=== PATIENT | female | born 1995 | race Caucasian/White ===

== ENCOUNTER 2016-11-11 19:41 | Emergency (ER) | payer BC ==
[~2016-11-11] VITALS: Ht 154.9 cm; Wt 73.2 kg
[2016-11-11 19:46] VITALS: TEMP 98.1
[2016-11-11] MEDS ORDERED: IMITREX 5MGNAS NS (20:09)
[2016-11-11] MEDS ORDERED: NUVARING VAG RING VG (20:13)
[2016-11-11] MEDS ORDERED: PHENERGAN 25 TA25 MG PO (21:17)
[2016-11-11 21:31] VITALS: BP 120/68; PULSE 76
== END 2016-11-11 21:32 | disposition home or self-care (01) ==
LOC: COL.ER 19:41
DX: G43.909 Migraine, unspecified, not intractable, without status migrainosus (principal)
CPT/HCPCS: J1200; J1885; J2550

== ENCOUNTER → 2017-01-13 | Outpatient (CLI) | payer BC ==
[~2017-01-13] MED LIST: IMITREX 5MGNAS NS; NUVARING VAG RING VG; PHENERGAN 25 TA25 MG PO
== END ==
LOC: COL.RAD 07:30
DX: C71.9 Malignant neoplasm of brain, unspecified (principal); G93.89 Other specified disorders of brain; G04.90 Encephalitis and encephalomyelitis, unspecified; G43.009 Migraine without aura, not intractable, without status migrainosus
CPT/HCPCS: A9585

== ENCOUNTER 2017-12-24 10:41 | Emergency (ER) | payer OTHER, BC ==
[~2017-12-24] VITALS: Ht 152.4 cm; Wt 81.8 kg
[2017-12-24 10:53] VITALS: BP 137/85; TEMP 98.4
[2017-12-24 13:20] VITALS: PULSE 76
== END 2017-12-24 13:20 | disposition home or self-care (01) ==
LOC: COL.ER 10:41
DX: S16.1XXA Strain of muscle, fascia and tendon at neck level, initial encounter (principal); S39.012A Strain of muscle, fascia and tendon of lower back, initial encounter; G43.909 Migraine, unspecified, not intractable, without status migrainosus; V43.52XA Car driver injured in collision with other type car in traffic accident, initial encounter
CPT/HCPCS: J1885